=== PATIENT | male | born 1985 | race African-American/Black ===

== ENCOUNTER → 2018-04-04 | Outpatient (CLI) | payer OTHER | LOC: COL.RAD 13:46 | DX: M25.551 Pain in right hip (principal) | CPT/HCPCS: J3301; Q9967 ==

== ENCOUNTER → 2018-09-09 | Outpatient (CLI) | payer OTHER | LOC: COL.RAD 12:45 | DX: M25.551 Pain in right hip (principal); Z98.890 Other specified postprocedural states | CPT/HCPCS: J3301; Q9967 ==

== ENCOUNTER 2018-09-30 09:24 | Day surgery (SDC) | payer OTHER ==
[~2018-09-30] VITALS: Ht 190.5 cm; Wt 123.5 kg
[2018-09-30 10:04] VITALS: BP 129/78; PULSE 63; TEMP 98.4
[2018-09-30] MEDS ORDERED: LEXAPRO 5MG5 MG PO (10:13)
[2018-09-30] MEDS ORDERED: CELEBREX 200MG200 MG PO (10:14)
[2018-09-30] MEDS ORDERED: VITAMIN D250 MCG PO (10:14)
[2018-09-30] MEDS ORDERED: AMOXICILLIN 50500 MG PO (10:15)
[2018-09-30] MEDS ORDERED: BIAXIN 500MG T500 MG PO (10:16)
[2018-09-30] MEDS ORDERED: PRILOSEC 20MG20 MG PO (10:17)
[2018-09-30] MEDS ORDERED: DESYREL 50MG50 MG PO (10:18)
[2018-09-30] MEDS ORDERED: INDERAL 10MG10 MG PO (10:18)
[2018-09-30] MEDS ORDERED: MASON NATURAL2000 IU PO (10:20)
--- NOTE | 2018-09-30 10:21 | NUR ---
TO RM AT 0945- CALL LIGHT IN REACH AT BEDSIDE.
[2018-09-30 12:10] VITALS: BP 112/71; PULSE 72
--- NOTE | 2018-09-30 12:10 | NUR ---
TO BAY 5 PER CART FROM ENDOSCOPY. AMBULATED TO RECLINER WITH ASSIST AND TOLERATED WELL. ONCE IN RECLINER PATIENT BACK TO SLEEP.
[2018-09-30 12:25] VITALS: BP 107/63; PULSE 63
--- NOTE | 2018-09-30 12:25 | NUR ---
AWAKE AND REQUESTING TO GO HOME. RECEIVED WATER AND TOLERATED WELL. DISCONTINUED IV AND INT-CATHETER INTACT INSTRUCED PATIENT HE WOULD NEED TO WAIT TILL DR TAM TALKS TO HIM.
[2018-09-30 12:45] VITALS: BP 115/67; PULSE 63
--- NOTE | 2018-09-30 13:07 | NUR ---
DR TAM INTO TALK WITH PATIENT AND HIS
--- NOTE | 2018-09-30 13:15 | NUR ---
RECEIVED DISCHARGE INSTRUCTIONS AND VERBALIZED UNDERSTANDING
--- NOTE | 2018-09-30 13:20 | NUR ---
DISCHARGED PER WC BY NURSING STAFF TO PRIVATE CAR IN CARE OF FREDY
== END 2018-09-30 13:25 | disposition home or self-care (01) ==
LOC: SDCO 09:24
DX: R19.5 Other fecal abnormalities (principal); R19.7 Diarrhea, unspecified; K64.0 First degree hemorrhoids; K21.0 Gastro-esophageal reflux disease with esophagitis; F41.9 Anxiety disorder, unspecified; F32.9 Major depressive disorder, single episode, unspecified; R20.2 Paresthesia of skin; Z79.899 Other long term (current) drug therapy
CPT/HCPCS: OP; J2704; J7120

== ENCOUNTER → 2018-10-21 | Outpatient (CLI) | payer OTHER ==
[~2018-10-21] MED LIST: AMOXICILLIN 50500 MG PO; BIAXIN 500MG T500 MG PO; CELEBREX 200MG200 MG PO; DESYREL 50MG50 MG PO; INDERAL 10MG10 MG PO; LEXAPRO 5MG5 MG PO; MASON NATURAL2000 IU PO; PRILOSEC 20MG20 MG PO; VITAMIN D250 MCG PO
== END ==
LOC: COL.RAD 07:38
DX: K62.5 Hemorrhage of anus and rectum (principal); R14.2 Eructation; R10.9 Unspecified abdominal pain; R19.7 Diarrhea, unspecified
CPT/HCPCS: A9541

== ENCOUNTER → 2019-01-24 | Outpatient (CLI) | payer OTHER | LOC: MHCPAIN 10:01 | DX: G89.29 Other chronic pain (principal); M47.817 Spondylosis without myelopathy or radiculopathy, lumbosacral region; M53.3 Sacrococcygeal disorders, not elsewhere classified; M79.2 Neuralgia and neuritis, unspecified | CPT/HCPCS: G0463 ==

== ENCOUNTER → 2019-04-19 | Outpatient (CLI) | payer OTHER | LOC: MHCPAIN 13:11 | DX: G89.29 Other chronic pain (principal); M47.817 Spondylosis without myelopathy or radiculopathy, lumbosacral region; M53.3 Sacrococcygeal disorders, not elsewhere classified | CPT/HCPCS: G0463 ==

== ENCOUNTER → 2019-05-08 | Outpatient (CLI) | payer OTHER | LOC: MHCPAIN 11:48 | DX: M47.817 Spondylosis without myelopathy or radiculopathy, lumbosacral region (principal); M54.16 Radiculopathy, lumbar region ==

== ENCOUNTER → 2019-05-17 | Outpatient (CLI) | payer OTHER | LOC: MHCPAIN 08:05 | DX: G89.29 Other chronic pain (principal); M47.817 Spondylosis without myelopathy or radiculopathy, lumbosacral region; M53.3 Sacrococcygeal disorders, not elsewhere classified | CPT/HCPCS: G0463 ==

== ENCOUNTER → 2019-06-20 | Outpatient (CLI) | payer OTHER | LOC: COL.RAD 08:25 | DX: M25.551 Pain in right hip (principal) ==